=== PATIENT | female | born 1975 | race Caucasian/White ===

== ENCOUNTER → 2018-11-17 09:01 | Outpatient (CLI) | payer OTHER, SELFPAY ==
--- NOTE | 2018-11-15 | IMM_PTH ---
PATIENT: ELMER AGUILAR LOC: [facility] U#:[id number] AGE/SX: 49/F ROOM: RE11/17/[address]: Dr. Edy Novoa MD : 1975 BED: DIS: SPEC #: [id number] RECD: 11/18/18 13:34 STATUS: MANDEEP RECesar #: [id number] TOOTIE: 11/15/18 00:[address]: Edy Novoa DEPT: IMMUNOHISTOCHEMISTRY RECD BY: Riana Willis ENTERED: 11/18/18 13:35 SP TYPE: IMMUNO OTHR DR: Dr. Mohsen Garcia MD Tissues: Uterine cervix, NOS Procedures: p16 (initial) KI-67 (add) PHYSICIAN & INSTITUTION [place] [address] SPECIMEN INFORMATION: Tissue Source: Cervical biopsy Clinical Info: N88.9 Specimen Number: [id number] CPT code: 26506, 82639 METHODOLOGY: Deparaffinized sections of prefer/formalin-fixed tissue or PAP/DQ stained slides are incubated with monoclonal/polyclonal antibodies/oligonucleotide probes. Localization is made via biotin free immunoperoxidase method. Appropriate controls are performed and reacted as expected. Results on target cell population are indicated in the following table: RESULTS: ANTIBODY / CLONE RESULT P16 (E6H4) positive, focal and patchy Ki-67 (30-9) negative These tests were developed and their performance characteristics determined by [facility]. They may not have been cleared or approved by the [place]. Food and Drug Administration. The FDA has determined that such clearance or approval is not necessary. INTERPRETATION: Cervical biopsy: Focal minimal changes suspicious for HPV cytopathic effects. SJ:mackenzie 11/21/18
--- NOTE | 2018-11-15 09:00 | CER_PTH ---
PATIENT: ELMER AGUILAR LOC: [facility] U#:[id number] AGE/SX: 49/F ROOM: RE11/17/[address]: Dr. Edy Novoa MD : 1975 BED: DIS: SPEC #: [id number] RECD: 11/17/18 11:00 STATUS: MANDEEP HAILECesar #: [id number] TOOTIE: 11/15/18 09:[address]: Edy Novoa DEPT: SURGICAL PATHOLOGY RECD BY: Bj Perry ENTERED: 11/17/18 12:22 SP TYPE: CERV OTHR DR: Dr. Mohsen Garcia MD Tissues: Uterine cervix, NOS Procedures: Surgery Specimen Level IV HEADER OPERATION: Cervical biopsy PRE-OP DIAGNOSIS: N88.9 TISSUE SUBMITTED: Cervical biopsy MICROSCOPIC DIAGNOSIS Cervix, biopsy: Focal minimal changes suspicious for HPV cytopathic effects. Moderate to marked chronic inflammation and acute inflammation and reactive changes. See comment. ROWAN:mackenzie 11/18/18 COMMENT Immunohistochemistry ([id number]) for surrogate HPV marker (p16) supports the above diagnosis. MICROSCOPIC DESCRIPTION Slides are reviewed. GROSS DESCRIPTION Received in fixative is one container labeled with the patient's name and designated cervical biopsy. The specimen consists of multiple irregular fragments of light stewart soft tissue that in aggregate measure 0.5 x 0.5 x 0.1 cm. The specimen is totally submitted in one cassette. / SJ:rg 11/17/18 TC:5 CPT: 81038
[2018-11-19 09:34] LABS: HPV Reflexed? NOT INDICATED
== END ==
PROVIDERS: Family Provider Internal Medicine Infectious Disease; PCP Internal Medicine Infectious Disease; Visit Provider Obstetrics & Gynecology
DX: N88.9 Noninflammatory disorder of cervix uteri, unspecified (principal); Z12.4 Encounter for screening for malignant neoplasm of cervix
CPT/HCPCS: 87624; 88175; 88305; 88341; 88342; G0145

== ENCOUNTER → 2022-09-23 | Outpatient (CLI) | payer OTHER, SELFPAY ==
[2022-09-23 10:32] LABS: Absolute Lymphocyte Count 1.55 X10^3/uL (0.83-4.51); Absolute Neutrophil Count 3.3 X10^3/uL (2.0-7.7); Basophil# 0.04 X10^3/uL; Basophil% 0.7 % (0-1); Eosinophil# 0.13 X10^3/uL; Eosinophils% 2.4 % (0-5); Hematocrit 40.8 % (37-47); Hemoglobin 13.7 g/dL (12.0-15.0); Lymphocyte # 1.55 X10^3/ul (0.83-4.51); Lymphocyte % 28.1 % (19-41); Mean Corp Hgb Conc 33.6 g/dL (32-36); Mean Corpuscular Hgb 29.8 pg (27.0-32.0); Mean Corpuscular Volume 88.7 fL (81-99); Mean Platelet Vol. 9.1 fl (6.2-12.0); Monocyte# 0.47 X10^3/uL; Monocyte% 8.5 % (0-10); NRBC Flagged by Analyzer 0 % (0-5); Neutrophil % 59.8 % (47-70); Platelet Count 412 K/mm3 (150-450); RBC Distribution Width CV 11.9 % (11.6-14.6); RBC Distribution Width SD 37.7 fl (35.1-43.9); White Blood Count 5.5 K/mm3 (4.4-11.0)
[2022-09-23 11:06] LABS: Estradiol 108.9 pg/mL; Follicle Stimulating Hormone 22.1 mIU/mL; Luteinizing Hormone 18.7 mIU/mL; T4 Free Direct 1.06 ng/dL (0.76-1.46); Thyroid Stim Hormone (TSH) 2.51 uIU/mL (0.358-3.74)
[2022-09-30 19:24] LABS: HPV APTIMA, High Risk Negative (Negative)
== END | disposition home or self-care (01) ==
PROVIDERS: PCP Internal Medicine Infectious Disease; Visit Provider Obstetrics & Gynecology
DX: N93.9 Abnormal uterine and vaginal bleeding, unspecified (principal); Z12.4 Encounter for screening for malignant neoplasm of cervix
CPT/HCPCS: 36415; 82670; 83001; 83002; 84439; 84443; 85025; 87624; 88175; G0145

== ENCOUNTER → 2022-10-13 | Outpatient (CLI) | payer OTHER, SELFPAY ==
--- NOTE | 2022-10-13 | EMB_PTH ---
PATIENT: ELMER AGUILAR LOC: [facility] U#:[id number] AGE/SX: 46/F ROOM: RE10/13/[address]: Dr. Talon Torres MD : 1975 BED: DIS: 10/13/2022 SPEC #: [id number] RECD: 10/13/22 15:06 STATUS: MANDEEP RECesar #: [id number] TOOTIE: 10/13/22 00:[address]: Talon Torres DEPT: SURGICAL PATHOLOGY RECD BY: Gricelda Neville ENTERED: 10/14/22 10:07 SP TYPE: ENDOM BX/C DARYA DR: Dr. Mohsen Garcia MD Tissues: Endometrium, NOS Procedures: Surgery Specimen Level IV HEADER OPERATION: Endometrial biopsy PRE-OP DIAGNOSIS: Abnormal uterine bleeding TISSUE SUBMITTED: Endometrial biopsy MICROSCOPIC DIAGNOSIS Endometrial biopsy: Disordered proliferative endometrium. SJ:mackenzie 10/15/2022 MICROSCOPIC DESCRIPTION Slides are reviewed. GROSS DESCRIPTION Received in fixative is one container labeled with the patient's name and designated endometrial biopsy. The specimen consists of multiple fragments of hemorrhagic soft tissue that in aggregate measure 2.5 x 2 x 0.2 cm. The specimen is totally submitted in one cassette. / SJ:mackenzie 10/14/2022 TC:5 CPT: 44943
== END | disposition home or self-care (01) ==
LOC: LABSPEC 14:54
PROVIDERS: PCP Internal Medicine Infectious Disease; Visit Provider Obstetrics & Gynecology
DX: N93.9 Abnormal uterine and vaginal bleeding, unspecified (principal)
CPT/HCPCS: 88305

== ENCOUNTER → 2023-02-15 | Outpatient (CLI) | payer OTHER, SELFPAY ==
--- NOTE | 2023-02-15 10:44 | BI_ITS ---
MAMMOGRAPHY - BILATERAL SCREENING REASON FOR EXAM: Female, 47 years old. Routine annual screening examination. PERTINENT HISTORY: Sister with breast cancer. Aunt with breast cancer. Remote history of left breast biopsy. TECHNIQUE: Digital bilateral breast erick (3D mammographic acquisition) in the CC and MLO projections. 2-D mediolateral oblique (MLO) and craniocaudad (CC) views of both breasts were obtained. CAD: Full Field Digital Mammography with Computer Added Detection was performed. COMPARISON: Mammogram from 10/12/2016. FINDINGS: Breast Composition: The breasts are heterogeneously dense, which may obscure small masses. There is a asymmetry in the left outer breast, posterior depth, seen best on CC and 3-D total synthesis cc views, approximately 13.3 cm posterior to the nipple. The posterior breast soft tissues were not well-visualized on comparison imaging and stability cannot be assessed. Further assessment with spot compression views and ultrasound is recommended. No other significant abnormalities are identified. Stable biopsy clip in the left breast. BI/SCRN MAMM (CAD)W/ERICK BILAT IMPRESSION: Further imaging evaluation recommended, as described above. (E) Recall Side: Left Breast ASSESSMENT CATEGORY: BIRADS Category 0: Incomplete. Need additional imaging evaluation. A letter regarding these results will be sent to the patient by the facility within 30 days. Approximately 10% of breast cancers are not detected by mammography. A normal mammogram should not delay biopsy of a clinically suspicious abnormality. Electronically Signed: Kraig Sevilla MD at 17:00 EDT ,
== END | disposition home or self-care (01) ==
LOC: OPBI 10:42
PROVIDERS: PCP Internal Medicine Infectious Disease; Referring Provider Obstetrics & Gynecology; Visit Provider Obstetrics & Gynecology
DX: Z12.31 Encounter for screening mammogram for malignant neoplasm of breast (principal)
CPT/HCPCS: 77063; 77067

== ENCOUNTER → 2023-02-19 | Outpatient (CLI) | payer OTHER, SELFPAY ==
--- NOTE | 2023-02-19 09:21 | BI_ITS ---
MAMMOGRAPHY - UNILATERAL DIAGNOSTIC: LEFT BREAST REASON FOR EXAM: Female, 47 years old. Work up of asymmetry noted in the left breast. PERTINENT HISTORY: Remote history of left breast biopsy. Sister and aunt with breast cancer. TECHNIQUE: Digital examination. Compression MLO and cc views of the upper outer quadrant of the left breast were obtained. CAD: February 15, 2023. COMPARISON: None. FINDINGS: Breast Composition: There are scattered areas of fibroglandular density. Asymmetry noted on the screening mammogram shows no suspicious features. Annual screening mammogram recommended. BI/DIAG MAMM W/CAD, UNILAT IMPRESSION: No abnormality on the diagnostic mammogram. Annual screening mammogram recommended. ASSESSMENT CATEGORY: BIRADS Category 2: Benign. A letter regarding these results will be sent to the patient by the facility within 30 days. FOLLOW-UP RECOMMENDATION: Yearly follow-up mammogram recommended. (A) Approximately 10% of breast cancers are not detected by mammography. A normal mammogram should not delay biopsy of a clinically suspicious abnormality. Electronically Signed: Masoud Eubanks MD at 12:35 EDT ,
== END | disposition home or self-care (01) ==
LOC: OPBI 09:19
PROVIDERS: PCP Internal Medicine Infectious Disease; Referring Provider Obstetrics & Gynecology; Visit Provider Obstetrics & Gynecology
DX: R92.8 Other abnormal and inconclusive findings on diagnostic imaging of breast (principal)
CPT/HCPCS: 77065

== ENCOUNTER → 2024-10-30 | Outpatient (CLI) | payer OTHER, SELFPAY ==
--- NOTE | 2024-10-30 13:10 | BI_ITS ---
PROCEDURE: SCRN MAMM (CAD)W/ERICK BILAT REASON FOR EXAM: F, Age 48 y/o, sisters with breast cancer. Aunt with breast cancer. Prior left ultrasound-guided breast biopsy. TECHNIQUE: Bilateral screening digital breast tomosynthesis with 2D and 3D images. Computer aided detection. COMPARISON: Prior exam(s) dating back to February 19, 2023. FINDINGS: There are scattered areas of fibroglandular density. A tissue clip marker is seen in the anterior upper central portion of the left breast. No suspicious masses, areas of developing architectural distortion, or suspicious calcifications. Stable examination. BI/SCRN MAMM (CAD)W/ERICK BILAT IMPRESSION: BI-RADS 2: BENIGN. RECOMMEND ANNUAL MAMMOGRAPHIC SCREENING. Follow-up code: Routine Follow-up The patient will be notified of the results by letter. Reading Location: [place] [address]
== END | disposition home or self-care (01) ==
PROVIDERS: PCP Internal Medicine Infectious Disease; Referring Provider Internal Medicine Infectious Disease; Visit Provider Internal Medicine Infectious Disease
DX: Z12.31 Encounter for screening mammogram for malignant neoplasm of breast (principal); Z80.3 Family history of malignant neoplasm of breast
CPT/HCPCS: 77063; 77067

== ENCOUNTER → 2025-02-12 | Outpatient (CLI) | payer OTHER, SELFPAY | END | disposition home or self-care (01) | PROVIDERS: PCP Internal Medicine Infectious Disease; Referring Provider Physician Assistant; Visit Provider Physician Assistant | DX: L72.3 Sebaceous cyst (principal); L08.9 Local infection of the skin and subcutaneous tissue, unspecified | CPT/HCPCS: 87070; 87075; 87205 ==